=== PATIENT | female | born 1970 | race Caucasian/White ===

== ENCOUNTER 2020-07-09 05:58 | Day surgery (SDC) | payer MEDICAID, SELFPAY ==
[~2020-07-09] VITALS: Ht 167.6 cm; Wt 61.2 kg
[2020-07-09] MEDS ORDERED: fentaNYL citrate 0.05 MG/ML VIAL ONE (07:33)
[2020-07-09] MEDS ORDERED: LIDOCAINE 2% 100 MG/5 ML UJET TP ONE (07:34)
[2020-07-09] MEDS ORDERED: MIDAZOLAM 5 MG/5 ML VIAL ONE (07:34)
[2020-07-09] MEDS: fentaNYL citrate 0.05 MG/ML VIAL IVP ONE (08:04)
[2020-07-09] MEDS: LIDOCAINE 2% 100 MG/5 ML UJET TP ONE (08:05)
== END 2020-07-09 08:56 | disposition home or self-care (01) ==
LOC: MDS 05:58 → MFCC 06:19 → MDS 08:56
PROVIDERS: ATTEND Internal Medicine Gastroenterology
DX: K92.1 Melena (principal); K63.5 Polyp of colon; Z20.828 Contact with and (suspected) exposure to other viral communicable diseases
CPT/HCPCS: 45385; 81025; J3010; U0003; J2250